=== PATIENT | female | born 1965 | race Caucasian/White ===

== ENCOUNTER 2017-04-23 08:00 | Outpatient (CLI) | payer OTHER ==
[~2017-04-23 08:00] MED LIST: ZITHROMAX TRI-500 MG PO
== END 2017-04-23 11:49 | disposition home or self-care (01) ==
LOC: LAB 08:00
DX: E11.65 Type 2 diabetes mellitus with hyperglycemia (principal); E10.65 Type 1 diabetes mellitus with hyperglycemia; E03.8 Other specified hypothyroidism; E05.90 Thyrotoxicosis, unspecified without thyrotoxic crisis or storm; E78.2 Mixed hyperlipidemia; E55.9 Vitamin D deficiency, unspecified; D64.89 Other specified anemias; N39.0 Urinary tract infection, site not specified; E21.3 Hyperparathyroidism, unspecified; E24.9 Cushing's syndrome, unspecified; E28.310 Symptomatic premature menopause; E22.1 Hyperprolactinemia

== ENCOUNTER 2017-04-23 08:24 | Outpatient (CLI) | payer OTHER | END 2017-04-23 08:29 | disposition home or self-care (01) | LOC: SONOGRAMA 08:24 | DX: E04.1 Nontoxic single thyroid nodule (principal) ==

== ENCOUNTER 2018-01-10 00:20 | Emergency (ER) | payer OTHER ==
[~2018-01-10] VITALS: Ht 162.6 cm; Wt 72.6 kg
[2018-01-10] MEDS ORDERED: BUTALB-ACETAMI1 EACH PO (03:02)
== END 2018-01-10 03:11 | disposition home or self-care (01) ==
LOC: ER 00:20
DX: S00.83XA Contusion of other part of head, initial encounter (principal); W10.8XXA Fall (on) (from) other stairs and steps, initial encounter; Y93.89 Activity, other specified; Y92.89 Other specified places as the place of occurrence of the external cause; Y99.8 Other external cause status

== ENCOUNTER → 2018-04-17 | Outpatient (CLI) | payer OTHER ==
[~2018-04-17] MED LIST changes: +BUTALB-ACETAMI1 EACH PO
== END | disposition home or self-care (01) ==
LOC: LAB 08:04
DX: N92.5 Other specified irregular menstruation (principal); N94.0 Mittelschmerz; N95.1 Menopausal and female climacteric states; R68.82 Decreased libido; K85.80 Other acute pancreatitis without necrosis or infection; E88.81 Metabolic syndrome and other insulin resistance; I10 Essential (primary) hypertension; E03.8 Other specified hypothyroidism; N39.0 Urinary tract infection, site not specified; R19.09 Other intra-abdominal and pelvic swelling, mass and lump; R79.0 Abnormal level of blood mineral; R74.8 Abnormal levels of other serum enzymes; E78.00 Pure hypercholesterolemia, unspecified

== ENCOUNTER → 2018-04-17 | Outpatient (CLI) | payer OTHER | END | disposition home or self-care (01) | LOC: MAMO-SONO 07:45 | DX: R74.8 Abnormal levels of other serum enzymes (principal); Z78.0 Asymptomatic menopausal state; R92.2 Inconclusive mammogram; Z80.3 Family history of malignant neoplasm of breast; Z12.31 Encounter for screening mammogram for malignant neoplasm of breast ==

== ENCOUNTER 2018-09-16 08:06 | Outpatient (CLI) | payer OTHER | END 2018-09-16 08:25 | disposition home or self-care (01) | LOC: LAB 08:06 | DX: I10 Essential (primary) hypertension (principal); E11.9 Type 2 diabetes mellitus without complications; E03.8 Other specified hypothyroidism; E78.2 Mixed hyperlipidemia ==

== ENCOUNTER 2019-05-11 08:25 | Outpatient (CLI) | payer OTHER | END 2019-05-11 10:47 | disposition home or self-care (01) | LOC: LAB 08:25 | DX: E03.8 Other specified hypothyroidism (principal); I10 Essential (primary) hypertension; E11.9 Type 2 diabetes mellitus without complications; E78.2 Mixed hyperlipidemia; M81.0 Age-related osteoporosis without current pathological fracture ==

== ENCOUNTER 2019-05-11 08:42 | Outpatient (CLI) | payer OTHER | END 2019-05-11 09:23 | disposition home or self-care (01) | LOC: MAMO-SONO 08:42 | DX: Z12.31 Encounter for screening mammogram for malignant neoplasm of breast (principal); Z87.898 Personal history of other specified conditions; N63.11 Unspecified lump in the right breast, upper outer quadrant ==

== ENCOUNTER → 2020-08-30 08:10 | Outpatient (CLI) | payer OTHER | END | disposition home or self-care (01) | LOC: LAB 08-16 07:56 | PROVIDERS: ATTEND Internal Medicine Cardiovascular Disease | DX: I10 Essential (primary) hypertension (principal); E11.9 Type 2 diabetes mellitus without complications; E78.2 Mixed hyperlipidemia; E55.9 Vitamin D deficiency, unspecified ==

== ENCOUNTER 2020-08-30 09:24 | Outpatient (CLI) | payer OTHER | END 2020-08-30 10:20 | disposition home or self-care (01) | LOC: SONOGRAMA 09:24 → MAMO-SONO 09:24 | PROVIDERS: ATTEND Internal Medicine Cardiovascular Disease | DX: N63.11 Unspecified lump in the right breast, upper outer quadrant (principal) ==

== ENCOUNTER 2022-10-09 13:44 | Outpatient (CLI) | payer OTHER | END 2022-10-09 13:45 | disposition home or self-care (01) | LOC: NUCLEAR 13:44 | PROVIDERS: ATTEND Obstetrics & Gynecology | DX: M81.0 Age-related osteoporosis without current pathological fracture (principal) ==

== ENCOUNTER 2022-12-02 08:27 | Outpatient (CLI) | payer OTHER | END 2022-12-02 08:28 | disposition home or self-care (01) | LOC: LAB 08:27 | PROVIDERS: ATTEND Obstetrics & Gynecology | DX: E03.9 Hypothyroidism, unspecified (principal); E04.9 Nontoxic goiter, unspecified; E11.65 Type 2 diabetes mellitus with hyperglycemia; E78.00 Pure hypercholesterolemia, unspecified ==

== ENCOUNTER 2022-12-02 09:46 | Outpatient (CLI) | payer OTHER | END 2022-12-02 09:51 | disposition home or self-care (01) | LOC: SONOGRAMA 09:46 | PROVIDERS: ATTEND Obstetrics & Gynecology | DX: R10.2 Pelvic and perineal pain (principal); N85.00 Endometrial hyperplasia, unspecified; E04.9 Nontoxic goiter, unspecified; E03.9 Hypothyroidism, unspecified ==

== ENCOUNTER → 2023-10-22 09:55 | Outpatient (CLI) | payer OTHER ==
[2023-10-22 11:23] LABS: HEMATOCRIT 40.5 % (36.0-45.00); HEMOGLOBIN 14.1 g/dL (12.0-15.00); MEAN CELL VOLUME 86.6 fL (80.00-100.00); MEAN CORPUSCULAR HEMOGLOBIN 30.1 pg (27.00-32.0); MEAN CORPUSCULAR HGB CONC 34.7 g/dl (32.0-36.0); PLATELET COUNT 245 K/uL (150-450); RED BLOOD COUNT 4.67 M/uL (4.00-6.00); RED CELL DISTRIBUTION WIDTH 12.9 % (11.5-14.5)
[2023-10-22 11:32] LABS: ALBUMIN 3.4 gm/dL (3.4-5.0); BILIRUBIN TOTAL 0.51 mg/dL (0.3-1.2); CALCIUM 9.1 mg/dL (8.5-10.1); CREATININE SERUM 0.62 mg/dL (0.55-1.02); GFR 98.52; GLOBULINA 3.5 G/DL (2.4-3.5); POTASSIUM 4.3 mEq/L (3.5-5.1); TOTAL PROTEIN 6.9 gm/dL (6.4-8.2)
== END | disposition home or self-care (01) ==
LOC: LAB 07:53
PROVIDERS: ATTEND Internal Medicine Gastroenterology
DX: K92.1 Melena (principal)

== ENCOUNTER 2023-10-22 13:03 | Outpatient (CLI) | payer OTHER | END 2023-10-22 13:08 | disposition home or self-care (01) | LOC: SONOGRAMA 13:03 | PROVIDERS: ATTEND Internal Medicine Gastroenterology | DX: D17.5 Benign lipomatous neoplasm of intra-abdominal organs (principal) ==

== ENCOUNTER 2024-06-07 14:13 | Outpatient (CLI) | payer OTHER | END 2024-06-07 14:24 | disposition home or self-care (01) | LOC: MAMO-SONO 14:13 | PROVIDERS: ATTEND Obstetrics & Gynecology | DX: N60.19 Diffuse cystic mastopathy of unspecified breast (principal); N63 Unspecified lump in breast; N64.4 Mastodynia; R92.1 Mammographic calcification found on diagnostic imaging of breast; R92.0 Mammographic microcalcification found on diagnostic imaging of breast ==

== ENCOUNTER 2024-06-07 15:33 | Outpatient (CLI) | payer OTHER ==
[2024-06-07 09:51] LABS: URINE APPEARANCE Clear; URINE BILIRRUBIN Negative (NEGATIVE); URINE BLOOD Negative; URINE COLOR Yellow; URINE GLUCOSE Negative (NEGATIVE); URINE KETONE Negative (NEGATIVE); URINE LEUKOCYTE Small; URINE NITRATE Negative; URINE PROTEIN Negative (NEGATIVE); URINE UROBILINOGEN 0.2 E.U./dl
[2024-06-07 09:53] LABS: URINE BACTERIA 178.6 uL (0.0-1933); URINE EPITHELIAL CELLS 12.8 uL (0.0-38.8); URINE RBC 14.8 uL (0.0-20.8); URINE WBC 31.3 uL (0.0-23.2)
[2024-06-07 09:55] LABS: URINE CAST 0.29 uL (0.0-1.40)
[2024-06-07 10:53] LABS: ALBUMIN 3.4 gm/dL (3.4-5.0); BILIRUBIN TOTAL 0.6 mg/dL (0.3-1.2); BILIRUBIN,CONJUGATED 0.12 mg/dL (0.0-0.2); BILIRUBIN,UNCONJUGATED 0.48 mg/dL (0.0-0.6)
== END 2024-06-07 15:36 | disposition home or self-care (01) ==
LOC: LAB 15:33
PROVIDERS: ATTEND Obstetrics & Gynecology
DX: K76.0 Fatty (change of) liver, not elsewhere classified (principal); R30.0 Dysuria